=== PATIENT | female | born 1970 | race Caucasian/White ===

== ENCOUNTER 2017-01-04 22:33 | Emergency (ER) | payer OTHER ==
--- NOTE | 2017-01-05 00:31 | ED ORDER SUMMARY ---
..... Patient: ROBE STAPLES OrderSheet [facility] VisitID: [id number] [address] [place] [address] 46y, F Registration Date/Time: 01/04/2017 ORDER SHEET Weight: 68.0 kg (stated) Allergies: No Known Drug Allergy GENERAL ORDERS: MEDICATION ORDERS: Tylenol PO 650 mg (NOW) (00:21 01/05/2017 Mely Raza) (0:25 EInderbitzen R.N.) Zofran ODT PO 4 mg (NOW) (00:21 01/05/2017 Mely Raza) (0:25 EInderbitzen R.N.) IV FLUIDS: ORDER SHEET NOTES: [Electronically signed by Luisa Coto R.N. (00:58 01/05/2017)] [Electronically signed by Juni Santoyo Dr. (04:26 01/07/2017)] [Electronically locked/signed by Luisa Coto R.N. (00:58 01/05/2017)]
--- NOTE | 2017-01-05 00:31 | ED NURSING NOTES ---
Clinical Report - Nurses [facility] [address] [place] [address] 01/04/2017 22:34 Patient: ROBE STAPLES TRIAGE Triage time 22:53. Acuity: LEVEL 4. Chief Complaint: INJURY TO HEAD. --22:58 Inderjit Valiente R.N. 22:53 01/04/17. BP: 122/81. HR: 79. RR: 15. O2 saturation: 98%. Temp: 98 F. Pain level now 03/23. --22:58 Inderjit Valiente R.N. Weight: 68 kg stated. Height/Length: 61 inches Per Patient. BMI: 28.3. --22:57 Inderjit Valiente R.N. Medications Levothyroxine Sodium Oral 125 mcg. --22:55 Inderjit Valiente R.N. Medication/allergy information source: the patient. --22:58 Inderjit Valiente R.N. Allergies No Known Drug Allergy. --22:55 Inderjit Valiente R.N. History Arrived by private vehicle. Historian: patient. Unaccompanied. This occurred today (0900). ( Pt hit her head on a metal door today at 0900. Pt denies any loc or vomiting. Pt is here due to having nausea all day. Pt is having numbness on the right side and pain on the top of her head. Pt says her vision has been blurry off and on and does wear glasses. Pt denies any blood thinners.). She has had a moderate, intermittent, throbbing frontal headache (6/10). The headache has been associated with nausea. SOCIAL HX: Never smoker. No alcohol use or drug use. --22:58 Inderjit Valiente R.N. PROBLEMS: Insect Bite(s). Prior Injury, Same Area. Allergic Rhinitis. Sinusitis. Hypothyroidism. --22:57 Inderjit Valiente R.N. Knee Injury [RuleOut]. --22:57 Inderjit Valiente R.N. Interventions ID band on patient. To treatment room. --22:58 Rocco, Inderjit, R.N. PHYSICAL ASSESSMENT 23:21 01/04/17. GENERAL / NEURO / PSYCH: Alert. Oriented X 4. Appears in no acute distress. HEENT: Head: tenderness present (left vertex area). Vertex: tenderness. Pupils equal, round and reactive to light. EOM intact. No Alegre's sign. Mucous membranes are pink. RESPIRATORY: Respirations not labored. CVS: Capillary refill less than 2 seconds. BACK: No neck or back tenderness. ROM normal to the neck and back. SKIN: Skin is warm and dry. --23:21 Luisa Coto R.N. NURSING PROGRESS NOTES 22:55 01/04/17. The initial plan of care for this patient includes an assessment with efforts to address the patient's anxiety; the presence of pain; impairment of the neurological and musculoskeletal system. This plan of care was discussed with the patient. Patient gowned. Reassurance given. Patient identifiers checked. Call light placed in reach. Side rails up x 1. Bed placed in lowest position. Brakes of bed on. Patient ready for evaluation. --23:08 Luisa Coto R.N. 00:00 Warm blanket to patient per request. --00:06 McQuoid, Marylin, ER Tech1 00:25 01/05/2017 Tylenol (Acetaminophen) PO Tablets 650 mg given. Allergies verified and confirmed 5 rights. --00:25 Luisa Coto R.N. 00:25 01/05/2017 Zofran ODT (Ondansetron) PO Oral Disintegrating Tablets 4 mg given. Allergies verified and confirmed 5 rights. --00:25 Luisa Coto R.N. 00:30 01/05/17. ( medicated for headache and nausea). --00:30 Luisa Coto R.N. 00:57 01/05/17. Reassessment after medication administered. She has had no adverse reaction. Overall patient status is improved- she states feels better. --00:57 Luisa Coto R.N. DISPOSITION / DISCHARGE 00:58 01/05/17. Departure time: 00:58 Jan 05 2017. Condition at departure: improved and stable. The goals identified in the patient's plan of care were met. Discharge instructions provided and reviewed with the patient. Reviewed medication(s) side effects, precautions, dosing and course information. Prescription(s) given to the patient. Patient verbalized understanding. Written instructions provided in [place]. The patient was discharged home and unaccompanied at time of discharge. She left the Emergency Department ambulatory and via private vehicle. Patient driving. --00:58 Luisa Coto R.N. 00:58 01/05/17. BP: 106/74. HR: 74. RR: 18. O2 saturation: 97%. Temp: 97.6 F. Pain level now 12/21. --00:58 Luisa Coto R.N. Locked/Released at 01/05/2017 0:58 by Luisa Coto R.N.
--- NOTE | 2017-01-05 00:31 | ED CLINICAL REPORT ---
Clinical Report - Physicians/Mid Levels [facility] [address] [place] [address] 01/04/2017 22:34 Patient: ROBE STAPLES Time Seen: 0010. Arrived- By private vehicle. Historian- patient. HISTORY OF PRESENT ILLNESS Location of injuries- head (left parietal area). Chief Complaint: INJURY TO HEAD. The injury occurred 9 am on today's visit. The patient sustained a single blow. (dental office). The patient complains of moderate pain. No blow to the head, neck pain, loss of consciousness or seizure. Not dazed. REVIEW OF SYSTEMS All systems otherwise negative, except as recorded above. PAST HISTORY See nurses notes. Tetanus immunization status is up-to-date. Medications: Levothyroxine Sodium Oral 125 mcg. Allergies: No Known Drug Allergy. SOCIAL HISTORY Never smoker. No alcohol use or drug use. Is a local resident. ADDITIONAL NOTES The nursing notes have been reviewed. PHYSICAL EXAM Vital Signs: 01/04/2017 22:53 BP: 122/81. HR: 79. RR: 15. O2 saturation: 98%. Temp: 98 F. Blood pressure normal. Oxygen saturation normal. Appearance: Alert. No acute distress. Head: Head non-tender. No swelling of head. No Alegre's sign or raccoon eyes. Eyes: Pupillary exam: Right pupil 4mm and reactive to light directly and consensually and with accommodation. Left pupil: 4mm, round and reactive to light directly and consensually and with accommodation. ENT: Pharynx abnormal. Dental injury present. Neck: No decreased ROM or muscle spasm in the neck. No pain with movement of head/neck. Painless ROM. Neck non-tender. No vertebral tenderness. CVS: Heart sounds normal. Pulses normal. Respiratory: Breath sounds normal. Chest nontender. Abdomen: Soft and nontender. No organomegaly. Back: No tenderness. ROM normal. Skin: Skin intact. Skin warm and dry. Normal skin color. Normal skin turgor. Extremities: Normal inspection. Pelvis stable. Extremities atraumatic. No lower extremity edema. Neuro: Ronan Coma Scale: 15- eyes open spontaneously (4); best verbal response- oriented x 3 (5); best motor response- obeys commands (6). Oriented X 3. Mood/affect normal. Speech normal. No motor deficit. No sensory deficit. PROGRESS AND PROCEDURES Course of Care: The patient is a pleasant 46-year-old female presented for evaluation of head injury. Patient has been appropriate since the time of accident. No nausea or vomiting. Patient does not meet any criteria for CT scan of the head. Feel the risk of radiation outweighs the benefits at this time. At this time patient will be monitored for any acute changes. Conservative management with symptom control recommended. Patient is agreeable to treatment plan. Patient reports improvement of her symptoms while here in the emergency department. Patient continues to be appropriate. Do not feel CT scan is warranted at this time. Patient with potentially signs of mild concussion. Recommended patient follow up with her primary care doctor and potentially neurologist if her symptoms are persistent or worsen. I discussion patient in regards to her workup in the emergency department included home care, follow-up, and return precautions. All questions have been answered. The patient expressed understanding of these instructions and was agreeable to them. Disposition: Discharged. Condition: good. CLINICAL IMPRESSION 01/04/2017 22:53 BP: 122/81. HR: 79. RR: 15. O2 saturation: 98%. Temp: 98 F. Blood pressure normal. Oxygen saturation normal. Minor closed head injury. INSTRUCTIONS Warnings: GENERAL WARNINGS: Return or contact your physician immediately if your condition worsens or changes unexpectedly, if not improving as expected, or if other problems arise. Specifically return if pain, vomiting, bleeding, breathing difficulty or fever. Your Current Medications: CONTINUE TAKING THE FOLLOWING MEDICATIONS: Levothyroxine Sodium Oral : 125 mcg. Prescription Medications: Zofran (orally disintegrating tablets) 4 mg: take 1 orally for 3 days. Dispense ten (10). No refill. Substitution is permissible. OTC Medications: Motrin (available over the counter): take according to label instructions. Follow-up: Return to the emergency department as needed. Follow up with your doctor in three days. Reason for referral: recheck today's concerns. Summary of care provided to patient via paper. Screening today revealed the patient's blood pressure to be in the normal range. The patient should follow up with a primary care provider for blood pressure management. Understanding of the discharge instructions verbalized by patient. (Electronically signed by Juni Santoyo Dr. 01/07/2017 4:26)
--- NOTE | 2017-01-05 00:31 | ED ORDER SUMMARY ---
..... Patient: ROBE STAPLES OrderSheet [facility] VisitID: [id number] [address] [place] [address] 46y, F Registration Date/Time: 01/04/2017 ORDER SHEET Weight: 68.0 kg (stated) Allergies: No Known Drug Allergy GENERAL ORDERS: MEDICATION ORDERS: Tylenol PO 650 mg (NOW) (00:21 01/05/2017 Mely Raza) (0:25 EInderbitzen R.N.) Zofran ODT PO 4 mg (NOW) (00:21 01/05/2017 Mely Raza) (0:25 EInderbitzen R.N.) IV FLUIDS: ORDER SHEET NOTES: [Electronically signed by Luisa Coto R.N. (00:58 01/05/2017)] [Electronically signed by Juni Santoyo Dr. (04:26 01/07/2017)] [Electronically locked/signed by Luisa Coto R.N. (00:58 01/05/2017)]
--- NOTE | 2017-01-07 04:27 | ED DISCHARGE INSTRUCTIONS ---
Patient: ROBE STAPLES General Instructions [facility] VisitID: [id number] [place] [address] 46y, F Registration Date/Time: 01/04/2017 01/04/2017 22:53 BP: 122/81. HR: 79. RR: 15. O2 saturation: 98%. Temp: 98 F. Blood pressure normal. Oxygen saturation normal. Minor closed head injury. INSTRUCTIONS Warnings: GENERAL WARNINGS: Return or contact your physician immediately if your condition worsens or changes unexpectedly, if not improving as expected, or if other problems arise. Specifically return if pain, vomiting, bleeding, breathing difficulty or fever. Your Current Medications: CONTINUE TAKING THE FOLLOWING MEDICATIONS: Levothyroxine Sodium Oral : 125 mcg. Prescription Medications: Zofran (orally disintegrating tablets) 4 mg: take 1 orally for 3 days. Dispense ten (10). No refill. Substitution is permissible. OTC Medications: Motrin (available over the counter): take according to label instructions. Follow-up: Return to the emergency department as needed. Follow up with your doctor in three days. Reason for referral: recheck today's concerns. Summary of care provided to patient via paper. Screening today revealed the patient's blood pressure to be in the normal range. The patient should follow up with a primary care provider for blood pressure management. Understanding of the discharge instructions verbalized by patient. ADDITIONAL INFORMATION Concussion (No Wake-Up) A concussion happens when you hit your head with enough force to shake up the brain. This may cause you to lose consciousness be "knocked out" - but not always. Depending on how hard you hit your head, it will take from a few hours up to a few days to get better. Sometimes symptoms may last a few months or longer. This is called post-concussion syndrome. At first, you may have a headache, nausea, vomiting, or dizziness. You may also have problems concentrating or remembering things. This is normal. Symptoms should get better as the hours and days go by. Symptoms that get worse could be a sign of a more serious injury. This might be a bruise or bleeding in the brain. Thats why its important to watch for the warning signs listed below. Home care Follow these tips to help care for yourself at home: During the next day (24 hours) someone must stay with you to check for the signs below. If your face or scalp swells, apply an ice pack for 20 minutes every 1 to 2 hours. Do this until the swelling starts to go down. You can make an ice pack by putting ice cubes in a plastic bag and wrapping the bag in a towel. for 20 minutes every 1-2 hours until the swelling starts to go down. You may use acetaminophen to control pain, unless another pain medicine was prescribed. If you have chronic liver or kidney disease, talk with your doctor before using these medicines. Also talk with your doctor if you ever had a stomach ulcer or GI bleeding. For the next 24 hours: Dont drink alcohol or take sedatives or medicines that make you sleepy. Dont drive or operate machinery. Avoid doing anything strenuous. Dont lift or strain. Dont return to sports or any activity that could cause you to hit your head until all symptoms are gone and you have been cleared by your doctor. A second head injury before fully recovering from the first one can lead to serious brain injury. Follow-up care Follow up with your doctor in 1 week, or as directed. Note: A radiologist will review any X-rays or CT scans that were taken. You will be told of any new findings that may affect your care. When to seek medical care Get prompt medical attention if any of these occur: Repeated vomiting Headache or dizziness that is severe or gets worse Unusual drowsiness, or unable to wake up as usual Confusion or change in behavior or speech, or memory loss Blurred vision Convulsion (seizure) Swelling on the scalp or face that gets worse Redness, warmth, or pus from the swollen area Fluid draining from or bleeding from the nose or ears Ondansetron Oral disintegrating tablet What is this medicine? ONDANSETRON (on SOWMYA se eduardo) is used to treat nausea and vomiting caused by chemotherapy. It is also used to prevent or treat nausea and vomiting after surgery. How should I use this medicine? These tablets are made to dissolve in the mouth. Do not try to push the tablet through the foil backing. With dry hands, peel away the foil backing and gently remove the tablet. Place the tablet in the mouth and allow it to dissolve, then swallow. While you may take these tablets with water, it is not necessary to do so. Talk to your balance bridge assembler regarding the use of this medicine in children. Special care may be needed. What side effects may I notice from receiving this medicine? Side effects that you should report to your doctor or health urgent care technician as soon as possible: allergic reactions like skin rash, itching or hives, swelling of the face, lips, or tongue breathing problems dizziness fast or irregular heartbeat feeling faint or lightheaded, falls fever and chills swelling of the hands and feet tightness in the chest Side effects that usually do not require medical attention (report to your doctor or health urgent care technician if they continue or are bothersome): constipation or diarrhea headache What may interact with this medicine? Do not take this medicine with any of the following medications: -apomorphine -cisapride -dofetilide -dronedarone -pimozide -thioridazine -ziprasidone This medicine may also interact with the following medications: -carbamazepine -phenytoin -rifampicin -tramadol -other medicines that prolong the QT interval (cause an abnormal heart rhythm) What if I miss a dose? If you miss a dose, take it as soon as you can. If it is almost time for your next dose, take only that dose. Do not take double or extra doses. Where should I keep my medicine? Keep out of the reach of children. Store between 2 and 30 degrees C (36 and 86 degrees F). Throw away any unused medicine after the expiration date. What should I tell my health care provider before I take this medicine? They need to know if you have any of these conditions: heart disease history of irregular heartbeat liver disease low levels of magnesium or potassium in the blood an unusual or allergic reaction to ondansetron, granisetron, other medicines, foods, dyes, or preservatives or trying to get breast-feeding What should I watch for while using this medicine? Check with your doctor or health urgent care technician as soon as you can if you have any sign of an allergic reaction. You have been given the following additional information: Concussion, No Wake-Up Ondansetron Oral disintegrating tablet (Electronically signed by Juni Santoyo Dr. 01/07/2017 4:26)
--- NOTE | 2017-01-07 04:27 | ED MAR SUMMARY ---
..... Medication Administration Record [facility] [address] [place] [address] Patient: ROBE STAPLES Visit ID: [id number] 46y, F Weight: 68.0 kg Height/Length: 61 in BMI: 28.3 ALLERGIES: No Known Drug Allergy Given 00:01/05/2017 Luisa Coto RVenessa Medication Administered: TYLENOL [PO] (ACETAMINOPHEN), Dose: 650 mg Tablets PO. Medication Ordered: Tylenol PO 650 mg (NOW). Given 00:01/05/2017 Luisa Coto RFelipeNFelipe Medication Administered: ZOFRAN ODT [PO] (ONDANSETRON), Dose: 4 mg Oral Disintegrating Tablets PO. Medication Ordered: Zofran ODT PO 4 mg (NOW).
--- NOTE | 2017-01-07 04:27 | ED MED RECONCILIATION SUMMARY ---
Patient: ROBE STAPLES Medication Reconciliation Report [facility] VisitID: [id number] [address] [place] [address] 46y, F Registration Date/Time: 01/04/2017 Weight: 68.0 kg Height/Length: 61 in. BMI: 28.3 ALLERGIES: No Known Drug Allergy The patient's Home Medications are listed below: CONTINUE TAKING THE FOLLOWING MEDICATIONS: Levothyroxine Sodium Oral 125 mcg The source(s) of the original Home Medication information: patient The following Medications were given to the patient in the Emergency Department: Tylenol [PO] PO 650 mg, administered: 01/05/2017 12:25:00 AM Zofran ODT [PO] PO 4 mg, administered: 01/05/2017 12:25:00 AM The following Medications were prescribed to the patient: Motrin (available over the counter): take according to label instructions. -- Juni Santoyo Dr. Zofran (orally disintegrating tablets) 4 mg: take 1 orally for 3 days. Dispense ten (10). No refill. Substitution is permissible. -- Juni Santoyo Dr.
--- NOTE | 2017-01-07 04:27 | ED MED RECONCILIATION SUMMARY ---
Patient: ROBE STAPLES Medication Reconciliation Report [facility] VisitID: [id number] [address] [place] [address] 46y, F Registration Date/Time: 01/04/2017 Weight: 68.0 kg Height/Length: 61 in. BMI: 28.3 ALLERGIES: No Known Drug Allergy The patient's Home Medications are listed below: CONTINUE TAKING THE FOLLOWING MEDICATIONS: Levothyroxine Sodium Oral 125 mcg The source(s) of the original Home Medication information: patient The following Medications were given to the patient in the Emergency Department: Tylenol [PO] PO 650 mg, administered: 01/05/2017 12:25:00 AM Zofran ODT [PO] PO 4 mg, administered: 01/05/2017 12:25:00 AM The following Medications were prescribed to the patient: Motrin (available over the counter): take according to label instructions. -- Juni Santoyo Dr. Zofran (orally disintegrating tablets) 4 mg: take 1 orally for 3 days. Dispense ten (10). No refill. Substitution is permissible. -- Juni Santoyo Dr.
--- NOTE | 2017-01-07 04:27 | ED MAR SUMMARY ---
..... Medication Administration Record [facility] [address] [place] [address] Patient: ROBE STAPLES Visit ID: [id number] 46y, F Weight: 68.0 kg Height/Length: 61 in BMI: 28.3 ALLERGIES: No Known Drug Allergy Given 00:01/05/2017 Luisa Coto RVenessa Medication Administered: TYLENOL [PO] (ACETAMINOPHEN), Dose: 650 mg Tablets PO. Medication Ordered: Tylenol PO 650 mg (NOW). Given 00:01/05/2017 Luisa Coto RFelipeNFelipe Medication Administered: ZOFRAN ODT [PO] (ONDANSETRON), Dose: 4 mg Oral Disintegrating Tablets PO. Medication Ordered: Zofran ODT PO 4 mg (NOW).
== END 2017-01-05 00:58 | disposition home or self-care (01) ==
LOC: ED SRH 22:33
DX: S09.90XA Unspecified injury of head, initial encounter (principal); W22.09XA Striking against other stationary object, initial encounter; Y93.9 Activity, unspecified; Y92.89 Other specified places as the place of occurrence of the external cause; Y99.9 Unspecified external cause status; Z79.899 Other long term (current) drug therapy